=== PATIENT | male | born 1980 | race Caucasian/White ===

== ENCOUNTER 2021-03-29 16:57 | Emergency (ER) | payer MEDICAID ==
[~2021-03-29] VITALS: Ht 190.5 cm; Wt 93.0 kg
[2021-03-29 17:24] VITALS: BP 147/81
[2021-03-29] MEDS ORDERED: ACETAMINOPHEN 325MG TABLET PO ONE (18:30)
== END 2021-03-29 23:24 | disposition home or self-care (01) ==
LOC: ER 16:57
DX: R20.0 Anesthesia of skin (principal); I10 Essential (primary) hypertension
CPT/HCPCS: 99284

== ENCOUNTER 2022-03-18 22:36 | Emergency (ER) | payer MEDICAID ==
[~2022-03-18] VITALS: Ht 190.5 cm; Wt 121.3 kg
[2022-03-18 23:00] VITALS: BP 146/91
[2022-03-18 23:30] LABS: BASOPHILS % 0.5 % (0.0-2.0); EOSINOPHILS % 0.6 % (0.0-5.0); HEMATOCRIT. 43.6 % (42.0-52.0); HEMOGLOBIN. 15.1 g/dL (14.0-18.0); MEAN CORPUSCULAR HEMOGLOBIN 27.2 pg (28.0-32.0); MEAN CORPUSCULAR VOLUME 78.4 fL (80.0-94.0); MEAN PLATELET VOLUME 8.2 fl (7.4-10.4); MONOCYTES % 9.6 % (2.0-8.0); NEUTROPHILS % 57.3 % (40.0-76.0); PLATELET 318 x1000/uL (130-400); RED BLOOD CELL COUNT 5.56 mill/uL (4.7-6.1); RED CELL DISTRIBUTION WIDTH 14.3 % (11.6-14.6)
[2022-03-18 23:30] LABS: CLARITY URINE CLEAR (CLEAR); COLOR URINE YELLOW (YELLOW); KETONES URINE NEGATIVE (NEGATIVE); LEUKOCYTE ESTERASE URINE NEGATIVE (NEGATIVE); NITRITE URINE NEGATIVE (NEGATIVE); OCCULT BLOOD URINE NEGATIVE (NEGATIVE); PH URINE 5.5 (4.5-8.0); PROTEIN URINE NEGATIVE (NEGATIVE); SPECIFIC GRAVITY URINE 1.011 (1.005-1.030); UROBILINOGEN URINE 0.2 E.U./dL (0.2-1.0)
[2022-03-18 23:32] LABS: CHLORIDE 103 mEq/L (98-107)
[2022-03-19] MEDS ORDERED: NAPR-1176 MT (02:45)
[2022-03-19] MEDS ORDERED: CYCL10TA21 MT (02:45)
== END 2022-03-19 02:53 | disposition home or self-care (01) ==
LOC: ER 23:09
DX: R10.9 Unspecified abdominal pain (principal); M51.26 Other intervertebral disc displacement, lumbar region
CPT/HCPCS: 36415; 74176; 80053; 81003; 85025; 99284